=== PATIENT | female | born 1970 | race Caucasian/White ===

== ENCOUNTER 2017-05-06 16:21 | Emergency (ER) | payer MEDICAID ==
[~2017-05-06] VITALS: Ht 162.6 cm; Wt 70.0 kg
[~2017-05-06 16:21] MED LIST: ETOMIDATE 2MG/ML 10ML VIAL IV ONE; STERILE WATER FOR INJECTION 10ML VIAL ONE; SUCCINYLCHOLINE CHLORIDE 200MG/10ML VIAL IV ONE; VECURONIUM BROMIDE 10 MG/VIAL IV ONE; no home meds
[2017-05-06] MEDS ORDERED: SODIUM CHLORIDE 0.9% 1,000 ML IV ONE (16:34)
[2017-05-06] MEDS ORDERED: LEVETIRACETAM 500MG PREMIX 100 ML IV ONE (16:45)
[2017-05-06] MEDS ORDERED: ONDANSETRON HCL 4MG/2ML VIAL IV ONE (16:45)
[2017-05-06] MEDS ORDERED: LORAZEPAM 2MG/ML CPJ IV ONE ×3 (16:45→18:30)
[2017-05-06 17:24] LABS: HEMATOCRIT. 32.8 % (36.0-48.0); HEMOGLOBIN. 10.6 g/dL (12.0-16.0); MEAN CORPUSCULAR HEMOGLOBIN 27.2 pg (28.0-32.0); MEAN CORPUSCULAR VOLUME 84.1 fL (81.0-99.0); MEAN PLATELET VOLUME 7.9 fl (7.4-10.4); PLATELET 203 x1000/uL (130-400); RED CELL DISTRIBUTION WIDTH 18.3 % (11.6-14.6)
[2017-05-06 17:26] LABS: CHLORIDE 100 mEq/L (98-107)
[2017-05-06 17:28] LABS: PROTHROMBIN TIME 10.5 sec (9.4-11.6)
[2017-05-06] MEDS ORDERED: FOLIC ACID 1 MG, THIAMINE HCL 100 MG, MVI, ADULT NO.1 10 ML in DEXTROSE 5% WATER 1,000 ML IV ONE ×4 (17:30)
[2017-05-06 17:35] LABS: CARBON DIOXIDE 23 mEq/L (21-32); ETHANOL BLOOD 240 mg/dL
[2017-05-06 17:41] LABS: HCG SCREEN NEGATIVE
[2017-05-06 17:44] LABS: CLARITY URINE CLEAR (CLEAR); COLOR URINE YELLOW (YELLOW); GLUCOSE URINE NEGATIVE (NEGATIVE); KETONES URINE 2+ (NEGATIVE); LEUKOCYTE ESTERASE URINE NEGATIVE (NEGATIVE); NITRITE URINE NEGATIVE (NEGATIVE); OCCULT BLOOD URINE TRACE (NEGATIVE); PROTEIN URINE TRACE (NEGATIVE); UROBILINOGEN URINE 0.2 E.U./dL (0.2-1.0)
[2017-05-06 17:55] LABS: PLATELET ESTIMATE NORMAL
[2017-05-06 18:00] LABS: *AMPHETAMINES SCREEN URINE NEGATIVE (NEGATIVE); *BARBITURATES SCREEN URINE NEGATIVE (NEGATIVE); *BENZODIAZEPINES SCREEN URINE NEGATIVE (NEGATIVE); *COCAINE SCREEN URINE NEGATIVE (NEGATIVE); CANNABINOID URINE SCREEN NEGATIVE (NEGATIVE); METHADONE URINE SCREEN NEGATIVE (NEGATIVE); OPIATES URINE SCREEN NEGATIVE (NEGATIVE); PHENCYCLIDINE URINE SCREEN NEGATIVE (NEGATIVE)
[2017-05-06] MEDS ORDERED: MANNITOL 12.5G (25%) VIAL 50ML IV ONE (18:00)
[2017-05-06] MEDS ORDERED: PROPOFOL 10MG/ML 100ML 100 ML IV ONE (18:00)
[2017-05-06] MEDS ORDERED: ETOMIDATE 2MG/ML 10ML VIAL IV ONE (18:00)
[2017-05-06] MEDS ORDERED: SUCCINYLCHOLINE CHLORIDE 200MG/10ML VIAL IV ONE (18:00)
[2017-05-06] MEDS ORDERED: VECURONIUM BROMIDE 10 MG/VIAL IV ONE (18:15)
[2017-05-06 18:17] VITALS: BP 120/82
[2017-05-06] MEDS ORDERED: LORAZEPAM 2MG/ML CPJ ONE (18:24)
== END 2017-05-06 18:33 | disposition short-term general hospital (02) ==
LOC: ER 16:38 → EDBEDREQSVC 18:52 → ENRESERV 19:04 → CANRESERV 19:04 → ENRESERV 19:08 → CANBEDREQ 19:15
DX: S06.5X0A Traumatic subdural hemorrhage without loss of consciousness, initial encounter (principal); S06.9X0A Unspecified intracranial injury without loss of consciousness, initial encounter; S06.4X0A Epidural hemorrhage without loss of consciousness, initial encounter; G93.40 Encephalopathy, unspecified; R56.9 Unspecified convulsions; F10.129 Alcohol abuse with intoxication, unspecified; X58.XXXA Exposure to other specified factors, initial encounter; Y93.89 Activity, other specified; Y92.89 Other specified places as the place of occurrence of the external cause; Y99.8 Other external cause status
CPT/HCPCS: 31500; 36415; 51702; 70450; 71010; 72125; 80053; 80305; 80307; 80329; 81001; 83735; 83930; 84703; 85025; 85610; 85730; 93005; 96365; 96375; 99291; A4216; G0482; J0330; J1953; J2060; J2150; J2405; J2704; J3411; J3490; J7030; J7070; Z7610; 94002

== ENCOUNTER 2018-05-28 11:20 | Inpatient (IN) | payer MEDICAID ==
[~2018-05-28] VITALS: Ht 147.3 cm; Wt 70.3 kg
[~2018-05-28 11:20] MED LIST changes: -ETOMIDATE 2MG/ML 10ML VIAL IV ONE; -STERILE WATER FOR INJECTION 10ML VIAL ONE; -SUCCINYLCHOLINE CHLORIDE 200MG/10ML VIAL IV ONE; -VECURONIUM BROMIDE 10 MG/VIAL IV ONE
[2018-05-28] MEDS ORDERED: SODIUM CHLORIDE 0.9% 1,000 ML IV ONE (11:37)
[2018-05-28] MEDS ORDERED: ONDANSETRON HCL 4MG/2ML INJ IV ONE (11:45)
[2018-05-28] MEDS ORDERED: FOLIC ACID 1 MG, THIAMINE HCL 100 MG, MVI, ADULT NO.1 10 ML in DEXTROSE 5% WATER 1,000 ML IV ONE ×4 (11:45)
[2018-05-28] MEDS ORDERED: LORAZEPAM 2MG/ML CPJ IV ONE (11:45)
[2018-05-28 12:02] LABS: HEMATOCRIT. 33.9 % (36.0-48.0); HEMOGLOBIN. 11.1 g/dL (12.0-16.0); MEAN CORPUSCULAR HEMOGLOBIN 24.9 pg (28.0-32.0); MEAN CORPUSCULAR VOLUME 76.2 fL (81.0-99.0); MEAN PLATELET VOLUME 7.8 fl (7.4-10.4); PLATELET 291 x1000/uL (130-400); RED BLOOD CELL COUNT 4.45 mill/uL (4.2-5.4); RED CELL DISTRIBUTION WIDTH 19.3 % (11.6-14.6)
[2018-05-28 12:06] LABS: CHLORIDE 102 mEq/L (98-107)
[2018-05-28 12:18] LABS: ETHANOL BLOOD < 10 mg/dL
[2018-05-28 12:25] LABS: HCG SCREEN NEGATIVE
[2018-05-28 12:30] LABS: PHENOBARBITAL < 2.1 ug/mL (15.0-40.0)
[2018-05-28 12:45] LABS: PLATELET ESTIMATE NORMAL
[2018-05-28] MEDS ORDERED: PHENYTOIN SODIUM EXTENDED 100MG CAPSULE PO ONE (13:00)
[2018-05-28 13:33] LABS: *AMPHETAMINES SCREEN URINE NEGATIVE (NEGATIVE); *BARBITURATES SCREEN URINE NEGATIVE (NEGATIVE); *BENZODIAZEPINES SCREEN URINE NEGATIVE (NEGATIVE); *COCAINE SCREEN URINE NEGATIVE (NEGATIVE); CANNABINOID URINE SCREEN NEGATIVE (NEGATIVE); METHADONE URINE SCREEN NEGATIVE (NEGATIVE); OPIATES URINE SCREEN NEGATIVE (NEGATIVE); PHENCYCLIDINE URINE SCREEN NEGATIVE (NEGATIVE)
[2018-05-28] MEDS ORDERED: POTASSIUM CHLORIDE 20MEQ TABLET SR PO ONE (14:00)
[2018-05-28] MEDS ORDERED: MAGNESIUM/ALUMINUM HYDROXIDE/SIMETHICONE 30ML UDC PO PRN (16:15)
[2018-05-28] MEDS ORDERED: LORAZEPAM 2MG/ML CPJ IV PRN (16:15)
[2018-05-28] MEDS ORDERED: CLONIDINE 0.1MG TABLET PO PRN (16:15)
[2018-05-28] MEDS ORDERED: NA PHOS,M-B/NA PHOS,DI-BA ENEMA 118ML PR PRN (16:15)
[2018-05-28] MEDS ORDERED: IPRATROPIUM/ALBUTEROL 0.5-3(2.5)MG/3ML NEB INH PRN (16:15)
[2018-05-28] MEDS ORDERED: GUAIFENESIN 200MG/10ML SUGAR FREE UDC PO PRN (16:15)
[2018-05-28] MEDS ORDERED: DIPHENHYDRAMINE 50MG/ML VIAL IV PRN (16:15)
[2018-05-28] MEDS ORDERED: DOCUSATE SODIUM 100MG CAPSULE PO PRN (16:15)
[2018-05-28] MEDS ORDERED: ONDANSETRON HCL 4MG/2ML INJ IV PRN (16:15)
[2018-05-28] MEDS ORDERED: HYDROMORPHONE HCL/PF 2MG/ML CPJ IV PRN (16:15)
[2018-05-28] MEDS ORDERED: ACETAMINOPHEN 325MG TABLET PO PRN (16:15)
[2018-05-28 18:00] VITALS: BP 117/58
[2018-05-28 18:15] VITALS: BP 117/58
[2018-05-28 18:49] LABS: CHLORIDE 101 mEq/L (98-107)
[2018-05-28 20:00] VITALS: BP 119/44
[2018-05-28] MEDS ORDERED: MVI, ADULT NO.1 10 ML, FOLIC ACID 1 MG, THIAMINE HCL 100 MG in SODIUM CHLORIDE 0.9% 1,0... IV SCH ×4 (20:00)
[2018-05-29] VITALS: BP 119/67
[2018-05-29] MEDS ORDERED: PHEN100C4 PO (00:09)
[2018-05-29] MEDS ORDERED: TRAZ-212 MT (00:12)
[2018-05-29 04:00] VITALS: BP 116/74
[2018-05-29] MEDS: PHENYTOIN SODIUM EXTENDED 100MG CAPSULE PO SCH ×3 (05:09→21:22)
[2018-05-29 07:04] LABS: HEMATOCRIT. 35.2 % (36.0-48.0); HEMOGLOBIN. 11.3 g/dL (12.0-16.0); MEAN CORPUSCULAR HEMOGLOBIN 24.5 pg (28.0-32.0); MEAN CORPUSCULAR VOLUME 76.3 fL (81.0-99.0); MEAN PLATELET VOLUME 8.3 fl (7.4-10.4); PLATELET 239 x1000/uL (130-400); RED BLOOD CELL COUNT 4.61 mill/uL (4.2-5.4); RED CELL DISTRIBUTION WIDTH 19.5 % (11.6-14.6)
[2018-05-29 07:09] LABS: CHLORIDE 100 mEq/L (98-107)
[2018-05-29 07:46] LABS: LDL CHOLESTEROL 58 mg/dL (5-100)
[2018-05-29 08:00] VITALS: BP 131/74
[2018-05-29 08:16] LABS: HDL CHOLESTEROL 177 mg/dL (40-59)
[2018-05-29] MEDS ORDERED: ASPIRIN 81MG EC TABLET PO SCH (09:00)
[2018-05-29 12:00] VITALS: BP 126/69
[2018-05-29 13:04] LABS: PLATELET ESTIMATE NORMAL
[2018-05-29] MEDS ORDERED: POTASSIUM CHLORIDE 20MEQ TABLET SR PO NR (13:30)
[2018-05-29] MEDS: HYDROCODONE/ACETAMINOPHEN 5/325MG TABLET PO PRN ×2 (13:40→20:06)
[2018-05-29 16:11] VITALS: BP 132/81
[2018-05-29 20:00] VITALS: BP 135/69
[2018-05-30] VITALS: BP 132/54
[2018-05-30 04:00] VITALS: BP 104/64
[2018-05-30] MEDS: PHENYTOIN SODIUM EXTENDED 100MG CAPSULE PO SCH (05:20)
[2018-05-30 07:16] VITALS: BP 128/76
[2018-05-30 07:51] VITALS: BP 128/76
== END 2018-05-30 07:45 | disposition home or self-care (01) | DRG 53 ==
LOC: ER 11:26 → 8WST 14:51 → ENRESERV 16:27
PROVIDERS: ADMIT Internal Medicine; ATTEND Internal Medicine
DX: G40.409 Other generalized epilepsy and epileptic syndromes, not intractable, without status epilepticus (principal); G93.40 Encephalopathy, unspecified; E86.0 Dehydration; I10 Essential (primary) hypertension; R55 Syncope and collapse; F10.239 Alcohol dependence with withdrawal, unspecified; Z91.14 Patient's other noncompliance with medication regimen; Z71.41 Alcohol abuse counseling and surveillance of alcoholic
CPT/HCPCS: 36415; 70486; 71045; 80048; 80061; 80184; 80185; 80305; 83735; 84443; 84484; 84703; 93005; 96374; 96375; 99285; G0482; J2060; J2405; J3411; J3490; J7030; J7070

== ENCOUNTER 2018-11-25 20:33 | Inpatient (IN) | payer MEDICAID ==
[~2018-11-25] VITALS: Ht 165.1 cm; Wt 65.8 kg
[~2018-11-25 20:33] MED LIST changes: +PHEN100C4 PO; +TRAZ-212 MT; -no home meds
[2018-11-25] MEDS ORDERED: LORAZEPAM 1MG TABLET PO ONE (21:00)
[2018-11-25 21:14] LABS: CHLORIDE 97 mEq/L (98-107)
[2018-11-25 21:16] LABS: HEMATOCRIT. 38.1 % (36.0-48.0); HEMOGLOBIN. 12.4 g/dL (12.0-16.0); MEAN CORPUSCULAR HEMOGLOBIN 25.2 pg (28.0-32.0); MEAN CORPUSCULAR VOLUME 77.5 fL (81.0-99.0); MEAN PLATELET VOLUME 8.5 fl (7.4-10.4); PLATELET 218 x1000/uL (130-400); RED BLOOD CELL COUNT 4.91 mill/uL (4.2-5.4); RED CELL DISTRIBUTION WIDTH 22.5 % (11.6-14.6)
[2018-11-25 21:19] LABS: ETHANOL BLOOD 243 mg/dL
[2018-11-25 21:39] LABS: ATYPICAL LYMPHOCYTES 2; PLATELET ESTIMATE NORMAL
[2018-11-25 21:39] LABS: *BENZODIAZEPINES SCREEN URINE NEGATIVE (NEGATIVE); *COCAINE SCREEN URINE NEGATIVE (NEGATIVE)
[2018-11-25 21:40] LABS: *AMPHETAMINES SCREEN URINE NEGATIVE (NEGATIVE); *BARBITURATES SCREEN URINE NEGATIVE (NEGATIVE); CANNABINOID URINE SCREEN NEGATIVE (NEGATIVE); METHADONE URINE SCREEN NEGATIVE (NEGATIVE); OPIATES URINE SCREEN NEGATIVE (NEGATIVE); PHENCYCLIDINE URINE SCREEN NEGATIVE (NEGATIVE)
[2018-11-25 22:15] LABS: INR 1.3; PROTHROMBIN TIME 12.9 sec (9.6-11.0)
[2018-11-25] MEDS ORDERED: POTASSIUM CHLORIDE 20MEQ TABLET SR PO ONE (22:15)
[2018-11-25] MEDS ORDERED: POTASSIUM CHLORIDE INJ 30 MEQ in DEXT 5%/0.9% NACL 1,000 ML IV ONE (22:15)
[2018-11-25] MEDS ORDERED: PHENYTOIN SODIUM EXTENDED 100MG CAPSULE PO ONE (22:30)
[2018-11-26] VITALS (7 sets, daily range): BP systolic 93–102; BP diastolic 56–62
[2018-11-26] MEDS ORDERED: TRAZ150T78 MT (01:29)
[2018-11-26] MEDS ORDERED: HYDROMORPHONE HCL/PF 2MG/ML CPJ IV PRN (02:45)
[2018-11-26] MEDS ORDERED: IBUPROFEN 200MG TABLET PO PRN (02:45)
[2018-11-26] MEDS ORDERED: HYDROCODONE/ACETAMINOPHEN 5/325MG TABLET PO PRN (02:45)
[2018-11-26] MEDS: POTASSIUM CHLORIDE 20MEQ TABLET SR PO SCH ×3 (05:50→21:11)
[2018-11-26] MEDS: PHENYTOIN SODIUM EXTENDED 100MG CAPSULE PO SCH ×3 (05:50→21:11)
[2018-11-26] MEDS: OMEPRAZOLE 20MG CAPSULE EXTENDED RELEASE PO SCH (06:20)
[2018-11-26] MEDS: THIAMINE HCL 100MG TABLET PO SCH (08:52)
[2018-11-26] MEDS: LACTULOSE 20G/30ML UDC PO SCH ×2 (08:52→21:11)
[2018-11-26 09:26] LABS: HEMATOCRIT 35.5 % (36.0-48.0); HEMOGLOBIN 11.3 g/dL (12.0-16.0); MEAN CORPUSCULAR HEMOGLOBIN 25.1 pg (28.0-32.0); MEAN CORPUSCULAR VOLUME 78.8 fL (81.0-99.0); PLATELET 221 x1000/uL (130-400); RED BLOOD CELL COUNT 4.51 mill/uL (4.2-5.4); RED CELL DISTRIBUTION WIDTH 22.5 % (11.6-14.6)
[2018-11-26 09:35] LABS: CHLORIDE 106 mEq/L (98-107)
[2018-11-26 10:36] LABS: CLARITY URINE CLEAR (CLEAR); COLOR URINE YELLOW (YELLOW); KETONES URINE NEGATIVE (NEGATIVE); LEUKOCYTE ESTERASE URINE NEGATIVE (NEGATIVE); NITRITE URINE NEGATIVE (NEGATIVE); OCCULT BLOOD URINE TRACE (NEGATIVE); PROTEIN URINE NEGATIVE (NEGATIVE); SPECIFIC GRAVITY URINE 1.003 (1.005-1.030); UROBILINOGEN URINE 0.2 E.U./dL (0.2-1.0)
[2018-11-26 11:17] LABS: HEPATITIS B SURFACE ANTIGEN NEGATIVE
[2018-11-26 11:47] LABS: HEPATITIS A AB IGM NEGATIVE (NEGATIVE)
[2018-11-26] MEDS: SODIUM CHL 0.45% + KCL 20MEQ/L 1,000 ML IV SCH ×2 (12:33→21:11)
[2018-11-26] MEDS: TRAZODONE HCL 100MG TABLET PO PRN (21:16)
[2018-11-27] VITALS: BP 109/49
[2018-11-27 04:00] VITALS: BP 98/46
[2018-11-27] MEDS: PHENYTOIN SODIUM EXTENDED 100MG CAPSULE PO SCH ×3 (06:24→23:54)
[2018-11-27] MEDS: POTASSIUM CHLORIDE 20MEQ TABLET SR PO SCH ×3 (06:24→23:54)
[2018-11-27] MEDS: OMEPRAZOLE 20MG CAPSULE EXTENDED RELEASE PO SCH (06:25)
[2018-11-27] MEDS: SODIUM CHL 0.45% + KCL 20MEQ/L 1,000 ML IV SCH ×3 (06:25→17:25)
[2018-11-27 06:28] LABS: HEMATOCRIT. 37.5 % (36.0-48.0); HEMOGLOBIN. 11.7 g/dL (12.0-16.0); MEAN CORPUSCULAR HEMOGLOBIN 25.2 pg (28.0-32.0); MEAN CORPUSCULAR VOLUME 80.5 fL (81.0-99.0); MEAN PLATELET VOLUME 8.1 fl (7.4-10.4); PLATELET 254 x1000/uL (130-400); RED BLOOD CELL COUNT 4.65 mill/uL (4.2-5.4); RED CELL DISTRIBUTION WIDTH 23.8 % (11.6-14.6)
[2018-11-27 06:43] LABS: CHLORIDE 109 mEq/L (98-107)
[2018-11-27] MEDS: THIAMINE HCL 100MG TABLET PO SCH (09:10)
[2018-11-27] MEDS: LACTULOSE 20G/30ML UDC PO SCH ×3 (09:10→23:54)
[2018-11-27 11:25] LABS: PLATELET ESTIMATE NORMAL
[2018-11-27 11:49] VITALS: BP 99/59
[2018-11-27 15:23] VITALS: BP 104/64
[2018-11-27 16:43] LABS: CREATINE KINASE 28 IU/L (26-192)
[2018-11-27 20:00] VITALS: BP 105/68
[2018-11-27] MEDS: TRAZODONE HCL 100MG TABLET PO PRN (23:53)
[2018-11-28] VITALS: BP 111/64
[2018-11-28] MEDS: SODIUM CHL 0.45% + KCL 20MEQ/L 1,000 ML IV SCH ×2 (03:39→13:00)
[2018-11-28 04:00] VITALS: BP 115/67
[2018-11-28] MEDS: POTASSIUM CHLORIDE 20MEQ TABLET SR PO SCH ×2 (05:37→14:00)
[2018-11-28] MEDS: PHENYTOIN SODIUM EXTENDED 100MG CAPSULE PO SCH ×2 (05:37→14:00)
[2018-11-28] MEDS: LACTULOSE 20G/30ML UDC PO SCH ×2 (05:37→14:00)
[2018-11-28 07:10] LABS: CHLORIDE 106 mEq/L (98-107)
[2018-11-28 08:00] VITALS: BP 107/60
[2018-11-28] MEDS ORDERED: FAMOTIDINE 20MG TABLET PO SCH (09:00)
[2018-11-28] MEDS: THIAMINE HCL 100MG TABLET PO SCH (09:25)
[2018-11-28 12:00] VITALS: BP 123/74
[2018-11-28 13:44] VITALS: BP 130/72
[2018-11-29 15:08] LABS: ANTI-NUCLEAR ANTIBODIES DIRECT Negative (Negative)
[2018-11-30 13:11] LABS: ACTIN (SMOOTH MUSCLE) ANTIBODY 20 Units (0-19)
== END 2018-11-28 14:30 | disposition home or self-care (01) | DRG 280 ==
LOC: ER 20:33 → 6WST 23:17 → ENRESERV 23:53
PROVIDERS: ADMIT Internal Medicine Geriatric Medicine; ATTEND Internal Medicine Geriatric Medicine
DX: K70.31 Alcoholic cirrhosis of liver with ascites (principal); E44.0 Moderate protein-calorie malnutrition; K72.00 Acute and subacute hepatic failure without coma; G90.8 Other disorders of autonomic nervous system; F10.20 Alcohol dependence, uncomplicated; G40.909 Epilepsy, unspecified, not intractable, without status epilepticus; E87.6 Hypokalemia; F43.10 Post-traumatic stress disorder, unspecified; F32.9 Major depressive disorder, single episode, unspecified; Y90.8 Blood alcohol level of 240 mg/100 ml or more; B17.9 Acute viral hepatitis, unspecified; K76.0 Fatty (change of) liver, not elsewhere classified; G47.00 Insomnia, unspecified; R73.9 Hyperglycemia, unspecified; Z71.41 Alcohol abuse counseling and surveillance of alcoholic; Z68.24 Body mass index [BMI] 24.0-24.9, adult
CPT/HCPCS: 36415; 76705; 80048; 80076; 80185; 80305; 80320; 82140; 82248; 82550; 82728; 83540; 83550; 84443; 85027; 86038; 86705; 86709; 86803; 87340; 93970; 97162; 99285; J3480; J7042; G0480

== ENCOUNTER 2020-09-26 15:44 | Emergency (ER) | payer MEDICAID ==
[~2020-09-26] VITALS: Ht 162.6 cm; Wt 90.0 kg
[~2020-09-26 15:44] MED LIST changes: -TRAZ-212 MT; +TRAZ150T78 MT
[2020-09-26] MEDS ORDERED: SODIUM CHLORIDE 0.9% 1,000 ML IV ONE (17:00)
[2020-09-26 17:25] LABS: BASOPHILS % 0.6 % (0.0-2.0); EOSINOPHILS % 0.7 % (0.0-5.0); HEMATOCRIT. 39.5 % (36.0-48.0); HEMOGLOBIN. 12.5 g/dL (12.0-16.0); LYMPHOCYTES % 50.7 % (20.0-50.0); MEAN CORPUSCULAR HEMOGLOBIN 25.8 pg (28.0-32.0); MEAN CORPUSCULAR VOLUME 81.4 fL (81.0-99.0); MEAN PLATELET VOLUME 8.1 fl (7.4-10.4); MONOCYTES % 9.3 % (2.0-8.0); NEUTROPHILS % 38.7 % (40.0-76.0); PLATELET 151 x1000/uL (130-400); RED BLOOD CELL COUNT 4.85 mill/uL (4.2-5.4); RED CELL DISTRIBUTION WIDTH 19.8 % (11.6-14.6)
[2020-09-26 17:28] LABS: CHLORIDE 110 mEq/L (98-107)
[2020-09-26 17:48] LABS: ETHANOL BLOOD 386 mg/dL
[2020-09-26 21:40] VITALS: BP 111/72
== END 2020-09-26 22:35 | disposition home or self-care (01) ==
LOC: ER 15:44
DX: F10.129 Alcohol abuse with intoxication, unspecified (principal); Y90.8 Blood alcohol level of 240 mg/100 ml or more; R07.89 Other chest pain; R03.0 Elevated blood-pressure reading, without diagnosis of hypertension
CPT/HCPCS: 36415; 71045; 80053; 80320; 84484; 85025; 93005; 96360; 96361; 99285; J7030; G0480

== ENCOUNTER 2020-11-13 16:27 | Emergency (ER) | payer MEDICAID ==
[~2020-11-13] VITALS: Ht 167.6 cm; Wt 71.0 kg
[2020-11-13] MEDS ORDERED: MAGNESIUM/ALUMINUM HYDROXIDE/SIMETHICONE 30ML UDC PO ONE (17:15)
[2020-11-13] MEDS ORDERED: VISCOUS LIDOCAINE 2% 15 ML UDC PO ONE (17:15)
[2020-11-13 17:32] LABS: BASOPHILS % 1.2 % (0.0-2.0); EOSINOPHILS % 0.8 % (0.0-5.0); HEMATOCRIT. 38.8 % (36.0-48.0); MEAN CORPUSCULAR HEMOGLOBIN 28.8 pg (28.0-32.0); MEAN PLATELET VOLUME 8.3 fl (7.4-10.4); MONOCYTES % 8.5 % (2.0-8.0); NEUTROPHILS % 47.5 % (40.0-76.0); PLATELET 126 x1000/uL (130-400); RED BLOOD CELL COUNT 4.51 mill/uL (4.2-5.4); RED CELL DISTRIBUTION WIDTH 20.1 % (11.6-14.6)
[2020-11-13 17:46] LABS: CHLORIDE 105 mEq/L (98-107)
[2020-11-13] MEDS ORDERED: [UNRECOGNIZED DRUG - CODE] PO (18:10)
[2020-11-13] MEDS ORDERED: GABA-529 MT (18:10)
[2020-11-13 18:13] VITALS: BP 105/69
== END 2020-11-13 18:25 | disposition home or self-care (01) ==
LOC: ER 16:27
DX: R53.1 Weakness (principal); I10 Essential (primary) hypertension; E11.9 Type 2 diabetes mellitus without complications; K76.9 Liver disease, unspecified
CPT/HCPCS: 36415; 80053; 85025; 99283

== ENCOUNTER 2021-05-22 07:25 | Emergency (ER) | payer MEDICAID ==
[~2021-05-22] VITALS: Ht 165.1 cm; Wt 59.0 kg
[~2021-05-22 07:25] MED LIST changes: +GABA-529 MT; +[UNRECOGNIZED DRUG - CODE] PO
[2021-05-22] MEDS ORDERED: SODIUM CHLORIDE 0.9% 1,000 ML IV ONE (07:45)
[2021-05-22 08:31] LABS: *AMPHETAMINES SCREEN URINE NEGATIVE (NEGATIVE); *BENZODIAZEPINES SCREEN URINE NEGATIVE (NEGATIVE); *COCAINE SCREEN URINE NEGATIVE (NEGATIVE); CANNABINOID URINE SCREEN NEGATIVE (NEGATIVE); METHADONE URINE SCREEN NEGATIVE (NEGATIVE); OPIATES URINE SCREEN NEGATIVE (NEGATIVE); PHENCYCLIDINE URINE SCREEN NEGATIVE (NEGATIVE)
[2021-05-22 08:32] LABS: *BARBITURATES SCREEN URINE NEGATIVE (NEGATIVE)
[2021-05-22 08:50] LABS: BASOPHILS % 0.9 % (0.0-2.0); EOSINOPHILS % 0.8 % (0.0-5.0); HEMATOCRIT. 40.4 % (36.0-48.0); HEMOGLOBIN. 13.5 g/dL (12.0-16.0); LYMPHOCYTES % 24.8 % (20.0-50.0); MEAN CORPUSCULAR HEMOGLOBIN 30.8 pg (28.0-32.0); MEAN CORPUSCULAR VOLUME 92.1 fL (81.0-99.0); MEAN PLATELET VOLUME 7.9 fl (7.4-10.4); MONOCYTES % 13.5 % (2.0-8.0); PLATELET 271 x1000/uL (130-400); RED BLOOD CELL COUNT 4.39 mill/uL (4.2-5.4); RED CELL DISTRIBUTION WIDTH 14.8 % (11.6-14.6)
[2021-05-22 08:53] LABS: CHLORIDE 102 mEq/L (98-107)
[2021-05-22 08:57] LABS: ETHANOL BLOOD < 10 mg/dL
[2021-05-22 09:08] LABS: HCG SCREEN NEGATIVE
[2021-05-22] MEDS ORDERED: ONDANSETRON HCL 4MG/2ML INJ IV STA (09:31)
[2021-05-22] MEDS ORDERED: MORPHINE SULFATE 4 MG/ML CPJ (NOT FOR IM USE) IV STA (09:31)
[2021-05-22] MEDS ORDERED: PHENYTOIN SODIUM EXTENDED 100MG CAPSULE PO ONE (09:45)
[2021-05-22] MEDS ORDERED: MORPHINE SULFATE 2 MG/ML CPJ (NOT FOR IM USE) IV NR (10:30)
[2021-05-22 11:45] VITALS: BP 135/75
[2021-05-22] MEDS ORDERED: IBUP-2029 MT (11:56)
== END 2021-05-22 12:55 | disposition home or self-care (01) ==
LOC: ER 07:25
DX: R07.89 Other chest pain (principal); I44.4 Left anterior fascicular block; E11.9 Type 2 diabetes mellitus without complications; G40.909 Epilepsy, unspecified, not intractable, without status epilepticus; I10 Essential (primary) hypertension; F31.9 Bipolar disorder, unspecified
CPT/HCPCS: 36415; 71045; 80053; 80185; 80305; 80320; 83690; 83880; 84484; 84703; 85025; 93005; 96361; 96374; 96375; 99285; J2270; J2405; J7030; G0480

== ENCOUNTER 2022-02-24 03:37 | Emergency (ER) | payer MEDICAID ==
[~2022-02-24] VITALS: Ht 165.1 cm; Wt 59.0 kg
[~2022-02-24 03:37] MED LIST changes: +IBUP-2029 MT
[2022-02-24 03:40] VITALS: BP 135/73
[2022-02-24] MEDS ORDERED: ONDANSETRON HCL 4MG/2ML INJ IV ONE (04:15)
[2022-02-24 05:09] LABS: BASOPHILS % 0.9 % (0.0-2.0); EOSINOPHILS % 0.1 % (0.0-5.0); HEMATOCRIT. 41.4 % (36.0-48.0); HEMOGLOBIN. 13.6 g/dL (12.0-16.0); LYMPHOCYTES % 22.7 % (20.0-50.0); MEAN CORPUSCULAR HEMOGLOBIN 30.5 pg (28.0-32.0); MEAN CORPUSCULAR VOLUME 92.8 fL (81.0-99.0); MONOCYTES % 5.2 % (2.0-8.0); NEUTROPHILS % 71.1 % (40.0-76.0); PLATELET 214 x1000/uL (130-400); RED BLOOD CELL COUNT 4.46 mill/uL (4.2-5.4); RED CELL DISTRIBUTION WIDTH 17.6 % (11.6-14.6)
[2022-02-24 05:22] LABS: CHLORIDE 104 mEq/L (98-107)
[2022-02-24] MEDS ORDERED: ONDA4TAB11 PO (06:13)
== END 2022-02-24 07:36 | disposition home or self-care (01) ==
LOC: ER 03:37
DX: F10.129 Alcohol abuse with intoxication, unspecified (principal); E11.9 Type 2 diabetes mellitus without complications; Z86.59 Personal history of other mental and behavioral disorders; Y90.6 Blood alcohol level of 120-199 mg/100 ml
CPT/HCPCS: 36415; 80053; 80320; 83690; 85025; 96374; 99283; J2405; G0480